=== PATIENT | female | born 1980 | race Caucasian/White ===

== ENCOUNTER → 2017-12-14 | Outpatient (CLI) | payer MEDICAID | LOC: FIMAGING 07:53 | PROVIDERS: ATTEND Obstetrics & Gynecology | DX: O09.522 Supervision of elderly multigravida, second trimester (principal); O60.12X0 Preterm labor second trimester with preterm delivery second trimester, not applicable or unspecified; O99.282 Endocrine, nutritional and metabolic diseases complicating pregnancy, second trimester; Z3A.20 20 weeks gestation of pregnancy ==